=== PATIENT | female | born 1995 | race Caucasian/White ===

== ENCOUNTER → 2020-03-09 | Outpatient (CLI) | payer OTHER ==
[~2020-03-09] MED LIST: ACET1TAB55 PO; IBUP80TA PO; PRENTAB9 PO
--- NOTE | 2020-04-28 15:25 | HPE ---
DATE OF ADMISSION: 03/09/2020 A 23-year-old 2, para 1, last menstrual period (LMP) unknown, estimated date of confinement (EDC) 05/26/2019 at 29 weeks of gestation. Fell on the dock today when disembarking from a boat. No vaginal loss, contractions, or discharge. RISK FACTORS: Short-interval . PAST HISTORY: December 2018, 40-week spontaneous vaginal delivery, 8-pound 6-ounce female. LABORATORY DATA: O positive, HIV negative, hepatitis negative, RPR negative, rubella immune, Varicella immune. Pap normal. Urine negative. Gonorrhea and chlamydia are negative. One-hour glucose was 95. Blood pressure 118/72, respirations 18, pulse 77, temperature 97.3. Hemoglobin 11.3, hematocrit 33.3, and platelets 178. Betke-Kleihauer was negative. On examination, no distress. Symphysis fundus height is 29. Soft abdomen. Four- quadrant bowel sounds. Category 1 strip. No contractions. No loss of fluid or vaginal bleeding. Ultrasound: Vertex presenting. Cardiac activity noted. Amniotic index (YU) 11.51. Smallest pocket was 3.18. Spontaneous respirations. movement limbs were noted, and no evidence of abruption. Cervix was long and closed. PLAN: Discharge with precautions. Keep appointment at [place] in March. Patient was discharged undelivered. [facility]
[2020-05-18 13:19] LABS: HEMATOCRIT 33.3 % (36.0-47.0); HEMOGLOBIN 11.3 g/dl (12.0-15.5); RED BLOOD COUNT 3.63 10^6/uL (4.00-5.40); WHITE BLOOD COUNT 10.8 10^3/uL (4.0-10.0)
[2020-05-18 13:20] LABS: MEAN CORPUSCULAR HEMOGLOBIN 31.1 pg (27.0-33.0); MEAN CORPUSCULAR HGB CONC 33.9 g/dl (32.0-36.5); MEAN CORPUSCULAR VOLUME 91.7 fl (80.0-96.0); PLATELET COUNT, AUTOMATED 178 10^3/uL (150-450)
[2020-05-25 07:48] LABS: CK-MB VALUE MASS 1.1 NG/ML (<3.6)
== END ==
LOC: M LDO 16:40
PROVIDERS: ATTEND Obstetrics & Gynecology
DX: O99.89 Other specified diseases and conditions complicating pregnancy, childbirth and the puerperium (principal); W19.XXXA Unspecified fall, initial encounter; Z3A.29 29 weeks gestation of pregnancy
CPT/HCPCS: 82553; 85027; 85460; G0378; G0463

== ENCOUNTER 2020-05-31 20:07 | Inpatient (IN) | payer OTHER ==
[~2020-05-31] VITALS: Ht 162.6 cm; Wt 86.1 kg
[2020-05-31 20:28] VITALS: BP 128/79
--- NOTE | 2020-05-31 22:22 | IPNPDOC ---
Text Note Date of Service The patient was seen on 05/31/20. NOTE 05/31/2020 1014 PATIENT ARRIVED HISTORY 40 WEEKS 5 DAYS BOOKED IOL IN WITH HISTORY CONTRACTIONS, NO LOSS OF FLUIDS NO BLEEDING , MILD INTENSITY , CATEGORY 1 STRIP , PELVIC EXAM CERVIX POSTERIOR THICK 1 CM -3 STATION 50% EFFACED. US VERTEX YU 6.62 CM 3.26 CM 3.15 CM CARDIAC ACTIVITY NOTED SPONTANEOUS RESPIRATION NOTED LIMB MOTION NOTED . PRECAUTIONS GIVEN DISCHARGED UNDELIVERED VS,Fishbone, I+O VS, Fishbone, I+O Vital Signs Date Time Temp Pulse Resp B/P (MAP) Pulse Ox O2 Delivery O2 Flow Rate FiO2 05/31/20 20:28 98.1 102 18 128/79 (95) Hussein Hand MD May 31, 2020 22:22
[2020-06-02] VITALS (43 sets, daily range): BP systolic 84–165; BP diastolic 46–90
[2020-06-02 07:32] LABS: HEMATOCRIT 35.5 % (36.0-47.0); HEMOGLOBIN 11.4 g/dl (12.0-15.5); MEAN CORPUSCULAR HEMOGLOBIN 28.1 pg (27.0-33.0); MEAN CORPUSCULAR HGB CONC 32.1 g/dl (32.0-36.5); MEAN CORPUSCULAR VOLUME 87.4 fl (80.0-96.0); PLATELET COUNT, AUTOMATED 176 10^3/uL (150-450); RED BLOOD COUNT 4.06 10^6/uL (4.00-5.40)
[2020-06-02] MEDS ORDERED: OXYTOCIN 30 UNITS IN 0.9% NaCl 500ML IV BAG (J2590) As Ordered ONE (07:37)
[2020-06-02] MEDS ORDERED: LACTATED RINGER'S 1000 ML IV ONE (07:45)
[2020-06-02] MEDS ORDERED: FENTANYL 2MCG/ML ROPIVACAINE 0.2% IN 0.9% NACL 100ML IVBAG As Ordered ONE (07:54)
--- NOTE | 2020-06-02 08:26 | HPEPDOC ---
Obstetrical History & Physical General Date of Admission Jun 02, 2020 at 06:45 History of Present Illness 24 yo at 41w0d with HILARY of 05/26/2020 presents to L&D with complaints of contractions since 0300 this morning. She denies vaginal bleeding, leaking of fluid, and reports positive movement. Chief Complaint: Contractions, term Age: 24 : 2 Term: 1 Pre-term: 0 Abortions: 0 Livin Care Care: Good Care Number of Visits: 9 Dating Final EDC: May 26, 2020 Final EDC for Daily Update: May 26, 2020 Final EDC by: 1st trimester (US) 1st Trimester Date: Oct 09, 2018 Weeks + Days: 7 (+4) Estimated Date of Confinement: May 26, 2020 EGA at Admission: 41 (+0) Antepartum Course Height (inches): 64 Pre- weight (lbs.): 142 Admission Weight (lbs.): 184 Change in Weight (lbs.): 40 Past Medical History Past Obstetrical History : Past Obstetrical History: Multigravida Date of Delivery: Jan 03, 2019 Gestation: 40 Type of Delivery: Spontaneous Vaginal Del. 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: No pertinent history Past Medical History Medical History Hx of MRSA (negative cultures x3) Surgical History: Holden teeth Family History Significant Family History: Cancer (MGF: Lung CA, PGM abd PGF: Unknown Cancer), Other (MGM: Strokes) Social History Marital Status: Family situation: Spouse/partner home Psychosocial History: No pertinent psych hx * Smoker: non-smoker Alcohol: Denies Drugs: denies Abuse Violence Screening Have you been hit/kicked/slapp: No Have you been sexually assault: No Imunizations Tdap status: current Allergies Coded Allergies: Cephalosporins (Verified Allergy, Severe, ANAPHYLAXIS, 01/02/19) vancomycin (Unverified Allergy, Unknown, RASH, 06/02/20) Medications Scheduled No.137/Iron/Folic Acd ( Vitamin Tablet) 1 Each Tablet, 1 TAB PO DAILY Physical Examination Physical Examination GENERAL: Alert and oriented times three. BREAST: . ABDOMEN: Gravid and non-tender to touch. FETUS: Is vertex (VTX) by sterile vaginal examination (SVE) HEART RATE: Regular rate and rhythm. LUNGS: Clear to auscultation (CTA). EXTREMITIES: No edema. No clonus. Deep tendon reflexes (DTRs) + 2. Vital Signs/I&O Vital Signs Date Time Temp Pulse Resp B/P (MAP) Pulse Ox O2 Delivery O2 Flow Rate FiO2 05/31/20 20:28 98.1 102 18 128/79 (95) Laboratory Data 24H LABS Laboratory Tests 2 06/02/20 07:00: Nucleated Red Blood Cells % (auto) 0.0 06/02/20 07:46: Serology Scanned Report Hepatitis B Testing CBC/BMP Laboratory Tests 06/02/20 07:00 Pertinent Laboratoy Data Blood Type: O+ RBC Antibody Screen: Negative HIV: Negative Hepatitis B: Negative Rapid Plasma Reagin: Nonreactive Rubella: Immune Varicella: Immune Chlamydia/Gonorrhea: Negative Group B Streptococcus: Positive Cystic Fibrosis: Negative Glucose Tolerance Test: 95 Anatomy Ultrasound Ultrasound Date: Jan 21, 2020 Placenta Location: Posterior Normal Anatomy: Yes Placenta Previa: No Estimated Weight (grams): 491 Vaginal Examination Dilation: 6 cm Effacement: 70% Station: -2 Cervical Consistency: Soft Cervical Position: Posterior Presentation: Cephalic presentation Position: Vertex (occiput) Assessment Heart Rate (FHR): 145 Variability: Moderate Accelerations: Present Decelerations: None Tocometer Contractions: Yes Frequency: other (every 2-4 minutes) Multi-drug resistant Organism: MRSA (History with negative cultures x3) Assessment/Plan Assessment The patient is a 24-year-old (G)2 para (P)1-0-0-1 at 41+0 weeks by 7- week ultrasound. Presents to Labor and Delivery (L&D) with complaints of contractions since 299. She denies leaking of fluid, vaginal bleeding, and reports positive movement. Her history is significant for close interval , GBS positive, and hx of VAVD. Plan Admit and orient for active labor. Belt Puncher and consent. Diet: clear liquids. Group B Streptococcus (GBS) positive, will not have prophylactic antibiotics due to multiple allergies to antibiotics that would be used for GBS. Labs and intravenous (IV) per unit protocol. Counseled on Pitocin, if needed for augmentation Lactated Ringers (LR): Bolus 1000 mL, then at 125 mL/hr. Coordinate epidural upon demand Anticipate normal spontaneous delivery (). C-S as appropriate. Labor and Delivery Counseling I discussed with her that she will not have prophylactic antibiotics for GBS due to allergies to penicillin, cephalosporins, vancomycin and a cross reactivity to clindamycin, after discussion with pharmacist and the need for the to be monitored for 48 hours after delivery for GBS exposure and jaundice. We also discussed history and risks of section, repeat VAVD if needed, and hemorrhage. She and her spouse verbalized understanding of the information and they are without any further questions at this time. RIN PALMA CNM Jun 02, 2020 08:26
[2020-06-02] MEDS ORDERED: ePHEDrine SULFATE 25 MG/5 ML(5MG/ML) SYRINGE As Ordered ONE (08:58)
[2020-06-02] MEDS ORDERED: ONDANSETRON 4MG/2ML VIAL IV PRN (09:15)
[2020-06-02] MEDS ORDERED: LACTATED RINGER'S 1000 ML IV PRN (09:15)
[2020-06-02] MEDS ORDERED: diphenhydrAMINE 50MG/ML VIAL (J1200) IV PRN (09:15)
[2020-06-02] MEDS ORDERED: NALOXONE INJ 0.4MG/1ML VIAL (J2310 PER 1MG) IV PRN (09:15)
[2020-06-02] MEDS ORDERED: REFRIGERATOR IV KEYS XX PRN (09:15)
[2020-06-02] MEDS ORDERED: EPIDURAL COMMENT XX SCH (09:15)
[2020-06-02] MEDS ORDERED: EPIDURAL/PCA KEYS XX PRN (09:15)
[2020-06-02] MEDS: LR 1,000 ML IV SCH ×3 (09:18→21:03)
[2020-06-02] MEDS: FENTANYL/ROPIVACAINE/NACL BAG 100 ML EPIDURAL SCH ×3 (09:20→21:04)
[2020-06-02] MEDS: ePHEDrine SULFATE 25 MG/5 ML(5MG/ML) SYRINGE IV PRN ×2 (09:23→09:24)
--- NOTE | 2020-06-02 09:51 | IPNPDOC ---
Obstetrical Progress Note Date of Service Jun 02, 2020 Subjective 24 yo at 41w0d admitted for active labor. She is comfortable with her epidural and is without any complaints at this time. She has supportive family at the bedside. Discussed AROM, patient is agreeable. Objective Vital Signs Date Time Temp Pulse Resp B/P (MAP) Pulse Ox O2 Delivery O2 Flow Rate FiO2 06/02/20 09:24 87 101/58 (72) 05/31/20 20:28 98.1 18 AROM for clear fluid Assessment Heart Rate (FHR): 135 Accelerations: Present Decelerations: None Tocometer Contractions: Yes Duration: other (every 3 minutes) Sterile Vaginal Examination Dilation: 8 cm Effacement (%): 100% Station: -1, 0 Postion/Presentation: Cephalic presentation Assessment and Plan Age: 24 : 2 Term: 1 Pre-term: 0 Abortions: 0 Livin EGA at Admission: 41 (+0) Weeks & Days 41w0d Status: Reassuring Group B Streptococcus: Positive Anticipate: Vaginal Delivery RIN PALMA CNM Jun 02, 2020 09:51
--- NOTE | 2020-06-02 13:08 | IPNPDOC ---
Obstetrical Progress Note Date of Service Jun 02, 2020 Subjective 24 yo at 41w0d admitted for active labor. She has no complaints at this time. She reports intermittent pressure during her contractions and remains comfortable with her epidural. She continues to have supportive family at the bedside. Objective Vital Signs Date Time Temp Pulse Resp B/P (MAP) Pulse Ox O2 Delivery O2 Flow Rate FiO2 06/02/20 12:26 83 111/55 (73) 06/02/20 10:40 97.1 16 Anterior lip/100/+1, practice pushing with minimal descent of the head. Decels to 60s noted after practice pushing with slow rise back to baseline after interventions. IUPC and FSE placed without difficulty. Assessment Heart Rate (FHR): 110 Variability: Moderate Accelerations: Present Decelerations: Prolonged Tocometer Contractions: Yes Frequency: other (every 3 minutes) Sterile Vaginal Examination Dilation: 9 cm (9.5) Effacement (%): 100% Station: +1 Postion/Presentation: Cephalic presentation Assessment and Plan Age: 24 : 2 Term: 1 Pre-term: 0 Abortions: 0 Livin EGA at Admission: 41 (+0) Weeks & Days 41w0d Group B Streptococcus: Negative Anticipate: Vaginal Delivery RIN PALMA CNM Jun 02, 2020 13:08
--- NOTE | 2020-06-02 14:22 | DNPDOC ---
[facility] Delivery Note Delivery Note Date of the procedure: 06/02/2020 Preoperative diagnosis: 1. 24 y/o at 41w0d 2. Active labor 3. GBS positive, no antibiotics due to allergies to antibiotics for GBS prophylaxis 4. O positive Postoperative diagnosis: 1. 24 y/o at 41w0d, delivered 2. Active labor 3. GBS positive, no antibiotics due to allergies to antibiotics for GBS prophylaxis 4. O positive 5. Second degree perineal laceration 6. Left labial laceration Procedure: Delivering Provider: Manuela Wilde CNM, SPENSER, ILANA Anesthesia: Epidural EBL: 300 Specimens: Cord blood collected. Findings: Live Male weighing 8 lb 14 oz, 4490 grams with Apgars of 9 and 9 at 1 and 5 minutes respectively. Complications: None Details of the procedure: The patient presented complaining of contractions and was found to be in active labor. Patient was 6 cm dilated and was then admitted to L&D. Labor progressed without Pitocin and membranes were ruptured artificially for clear fluid.. The patient progressed to fully dilated and entered the second stage of labor, at which point she began to push over an intact perineum. The head was then delivered. The nuchal cord was not noted. The rest of the was delivered. The infant was placed on maternal abdomen and the cord was doubly clamped and cut. Cord blood was collected and a 3 vessel cord was noted. Manual exploration of the uterus was not performed. Uterine tone was firm. Perineum was inspected and a second degree perineal laceration and left labial laceration were found. These were repaired with 2-0 chromic. Cervical exam was normal. Rectal exam was not noted. Sponge, instrument, and needle counts were correct. The patient tolerated the procedure well and is stable in recovery. Note was written and electronically signed by: Manuela Wilde CNM, SPENSER, MANUELA GROVE CNM Jun 02, 2020 14:22
[2020-06-02] MEDS ORDERED: ACETAMINOPHEN TAB 650MG DOSE (2X325MG) PO PRN (14:30)
[2020-06-02] MEDS ORDERED: MOM 30ML SUSPENSION UDC PO PRN (14:30)
[2020-06-02] MEDS ORDERED: PROMETHAZINE 25 MG TAB PO PRN (14:30)
[2020-06-02] MEDS ORDERED: RHOGAM 300 MCG (1500 IU) INJ (J2790) IM SCH (14:30)
[2020-06-02] MEDS ORDERED: METHYLERGONOVINE MALEATE 0.2 MG TAB PO PRN (14:30)
[2020-06-02] MEDS ORDERED: MEASLES,MUMPS,RUBELLA VACCINE INJ (MMR-II) (90707) SC SCH (14:30)
[2020-06-02] MEDS ORDERED: ANUSOL HC CREAM 30GM TOP PRN (14:30)
[2020-06-02] MEDS ORDERED: OXYTOCIN DRIP 30 UNITS in IV 1 EA IV SCH (14:33)
[2020-06-02] MEDS: DIBUCAINE 1% OINTMENT 30GM TOP PRN (17:47)
[2020-06-02] MEDS: IBUPROFEN 800 MG TAB PO PRN ×2 (17:47→19:36)
[2020-06-02] MEDS: ACETAMINOPHEN 500 MG TAB PO PRN (19:22)
[2020-06-02] MEDS: DOCUSATE SODIUM 100 MG CAP PO SCH (20:22)
[2020-06-03] MEDS: IBUPROFEN 800 MG TAB PO PRN ×4 (02:43→23:09)
[2020-06-03] MEDS: ACETAMINOPHEN 500 MG TAB PO PRN ×3 (04:46→19:53)
--- NOTE | 2020-06-03 05:26 | IPNPDOC ---
Progress Note Date of Service: Jun 03, 2020 Day#: 1 Progress Note SUBJECT: CLAUDINE is a 24-year-old 2 now Para 2002 status post uncomplicated spontaneous vaginal delivery at 41-0/7 weeks' at approximately on 06/02/2020 of a Live Male infant weighing 8 lb 14 oz, 4490 grams with Apgars of 9 and 9 at 1 and 5 minutes respectively with post vaginal laceration and repair, doing well day # 1. She has been ambulating, voiding spontaneously w ithout issue and tolerating regular diet. Breast feeding without issue. Reports lochia is [like a normal period]. OBJECTIVE: VITAL SIGNS: Within normal limits, afebrile. Alert and oriented times three. Breath sounds clear to auscultation. Heart rate: Regular rate and rhythm, no murmurs, rubs or gallops. Abdomen: Fundus firm at U-2. Soft, NTTP. [Minimal] lochia. ASSESSMENT:CLAUDINE is a 24-year-old 2 now Para 2002 status post uncomplicated spontaneous vaginal delivery at 41-0/7 weeks' at approximately on 06/02/2020 of a Live Male infant weighing 9 lb 14 oz, 4490 grams with Apgars of 9 and 9 at 1 and 5 minutes respectively with post vaginal laceration and repair, doing well day # 1. Vitals within normal limits, afebrile, hemodynamically stable with no evidence of infection. PLAN: 1. continue inpatient admission 2. Tylenol and Motrin for pain. 3. Encourage breast feeding and ambulation. 4. condoms and abstinence for contraception 5. Routine PP visit in 6 weeks in clinic. 6. Discussed return precautions at length. VS, I&O, 24H, [place] Vital Signs/I&O Vital Signs Date Time Temp Pulse Resp B/P (MAP) Pulse Ox O2 Delivery O2 Flow Rate FiO2 06/02/20 17:54 99.0 91 18 115/67 (83) I&O- Last 24 Hours up to 6 AM 06/03/20 06:00 Intake Total 3518 ml Output Total 2645 ml Balance 873 ml Laboratory Data 24H LABS Laboratory Tests 2 06/02/20 07:00: Nucleated Red Blood Cells % (auto) 0.0, Syphilis Serology NONREACTIVE 06/02/20 07:46: Serology Scanned Report Hepatitis B Testing CBC/BMP Laboratory Tests 06/02/20 07:00 MONIQUE BARGER MD Jun 03, 2020 05:22
[2020-06-03 06:32] VITALS: BP 101/62
[2020-06-03] MEDS: LR 1,000 ML IV SCH (07:32)
[2020-06-03] MEDS: DOCUSATE SODIUM 100 MG CAP PO SCH ×2 (08:26→19:52)
[2020-06-03 08:29] LABS: HEMATOCRIT 31.3 % (36.0-47.0); HEMOGLOBIN 9.8 g/dl (12.0-15.5); MEAN CORPUSCULAR HEMOGLOBIN 27.9 pg (27.0-33.0); MEAN CORPUSCULAR HGB CONC 31.3 g/dl (32.0-36.5); MEAN CORPUSCULAR VOLUME 89.2 fl (80.0-96.0); PLATELET COUNT, AUTOMATED 153 10^3/uL (150-450); RED BLOOD COUNT 3.51 10^6/uL (4.00-5.40); WHITE BLOOD COUNT 13.5 10^3/uL (4.0-10.0)
[2020-06-03 18:00] VITALS: BP 129/88
[2020-06-03] MEDS: DIBUCAINE 1% OINTMENT 30GM TOP PRN (19:53)
[2020-06-04 05:52] VITALS: BP 106/55
[2020-06-04] MEDS: IBUPROFEN 800 MG TAB PO PRN (07:19)
--- NOTE | 2020-06-04 07:21 | IPNPDOC ---
Progress Note Date of Service: Jun 04, 2020 Day#: 2 Progress Note SUBJECT: Christiana is a 24yo now status post uncomplicated spontaneous vaginal delivery doing well day # 2. She has been ambulating, voiding spontaneously without issue and tolerating regular diet. Breast feeding without issue. Reports lochia is decreasing. Pain controlled on oral pain meds. OBJECTIVE: VITAL SIGNS: Within normal limits, afebrile. Alert and oriented times three. Abdomen: Fundus firm at U-2. Soft, NTTP. : no edema, small lochia ASSESSMENT: Christiana is a 24yo now status post uncomplicated spontaneous vaginal delivery doing well day # 2. Vitals within normal limits, afebrile, hemodynamically stable with no evidence of infection. PLAN: 1. Discharge to home today 2. Tylenol and Motrin for pain. 3. Encourage breast feeding and ambulation. 4. Encourage regular diet as tolerated 5. Routine PP visit in 6 weeks in clinic. 6. Discussed return precautions at length. VS, I&O, 24H, Fishbone Vital Signs/I&O Vital Signs Date Time Temp Pulse Resp B/P (MAP) Pulse Ox O2 Delivery O2 Flow Rate FiO2 06/04/20 05:52 98.0 83 18 106/55 (72) Laboratory Data 24H LABS Laboratory Tests 2 06/03/20 07:35: Nucleated Red Blood Cells % (auto) 0.0 CBC/BMP Laboratory Tests 06/03/20 07:35 BRIAN PATEL DO Jun 04, 2020 07:20
[2020-06-04] MEDS: DOCUSATE SODIUM 100 MG CAP PO SCH (08:15)
[2020-06-04] MEDS ORDERED: INFLUENZA QUADRIVALENT PF VACCINE 0.5ML SYRINGE IM ONE (09:00)
[2020-06-04] MEDS: ACETAMINOPHEN 500 MG TAB PO PRN (12:27)
--- NOTE | 2020-06-06 15:16 | IPN ---
DATE: 06/03/2020 This patient requested circumcision of her male after discussing risks and benefits of circumcision, the medical and the nonmedical indications, the penile block, and aftercare. Expressed understanding of penile block, aftercare, and bleeding. Signed the consent form. All questions were answered. A 20 minute discussion. We await the clearance by the doctor of dental surgery. OSMAR
== END 2020-06-04 14:30 | disposition home or self-care (01) | DRG 807 ==
LOC: M LDO 20:07 → M LDI 06-02 06:45 → M OBS 06-02 16:29
PROVIDERS: ADMIT Obstetrics & Gynecology; ATTEND Registered Nurse Maternal Newborn
PROC: 10E0XZZ Delivery of Products of Conception, External Approach (ICD-10-PCS; principal; 2020-06-02)
PROC: 0KQM0ZZ Repair Perineum Muscle, Open Approach (ICD-10-PCS; 2020-06-02)
PROC: 10907ZC Drainage of Amniotic Fluid, Therapeutic from Products of Conception, Via Natural or Artificial Opening (ICD-10-PCS; 2020-06-02)
DX: O48.0 Post-term pregnancy (principal); Z37.0 Single live birth; Z3A.41 41 weeks gestation of pregnancy; O99.824 Streptococcus B carrier state complicating childbirth; O70.1 Second degree perineal laceration during delivery